=== PATIENT | female | born 1950 | race Asian ===

== ENCOUNTER 2018-03-07 10:27 | Day surgery (SDC) | payer OTHER ==
[~2018-03-07] VITALS: Ht 160 cm; Wt 62.2 kg
[~2018-03-07 10:27] MED LIST: AMLO-147 PO; LOSA25TA12 PO; METF500T24 PO; SITA50TA2 PO; [UNRECOGNIZED DRUG - OTHER]
[2018-03-07] MEDS ORDERED: SIMVASTATIN (11:37)
[2018-03-07] MEDS ORDERED: NITROGLYCERIN (11:38)
[2018-03-07 11:40] VITALS: Ht 160 cm; Wt 62.2 kg
[2018-03-07 12:36] VITALS: BP 147/67; PULSE 82; RESP 20
--- NOTE | 2018-03-07 13:23 | PREAC ---
Date/Time of Note Date/Time of Note DATE: 03/07/18 TIME: 13:19 Anesthesia Eval and Record Evaluation Time Pre-Procedure Interview DATE: 03/07/18 TIME: 13:19 Age 68 Sex female NPO: 8 hrs Preoperative diagnosis dysphagia Planned procedure EGD Past Medical History Past Medical History: Includes Cardio: HTN, Dyslipidemia Endo: Diabetes GI: GERD Surgery & Anesthesia Issues No known issue Meds Anticoagulation: No Beta Raphael within 24 hr: No Reason Beta Raphael not given: Pt. not on B-Raphael Reported Medications [Nitroglycerin] No Conflict Check 03/07/18 [Simvastatin] No Conflict Check 03/07/18 [Asirin] No Conflict Check 06/30/15 Losartan Potassium* (Losartan Potassium*) 25 Mg Tablet, 50 MG PO DAILY, TAB 06/30/15 Amlodipine Besylate* (Amlodipine Besylate*) 10 Mg Tablet, 10 MG PO DAILY, #30 TAB 06/30/15 Sitagliptin* (Januvia*) 50 Mg Tablet, 50 MG PO DAILY, #30 TAB 06/30/15 Metformin Hcl* (Metformin Hcl*) 500 Mg Tablet, 500 MG PO WITH BREAKFAST PRN for BID, #30 TAB 06/30/15 Meds reviewed: Yes Allergies Uncoded Allergies: PCN (Adverse Reaction, Severe, SOB , RASHES, 06/30/15) Allergies Reviewed: Yes Labs/Studies Labs Reviewed: Reviewed by anesthesiologist test: N/A Studies: ECG (SR) Pre-procedure Exam Last vitals Vital Signs Date Temp Pulse Resp B/P (MAP) Pulse Ox O2 O2 Flow FiO2 Time Delivery Rate 03/07/18 99.4 82 20 147/67 100 Room Air 12:36 (93) Airway: Adequate mouth opening, Adequate thyromental dist Mallampati: Mallampati II Teeth: Abnormal (dentures top and bottom) Lung: Normal Heart: Normal ASA Physical Status ASA physical status: 2 Emergency: None Pre-operative Attestations Prior to commencing anesthesia and surgery, the patient was re-evaluated, there was verification of: *The patient's identity *The results of appropriate recent lab work and preoperative vital signs *The above evaluation not changing prior to induction *Anesthetic plan, risk benefits, alternative and complications discussed with patient/family; questions answered; patient/family understands, accepts and wishes to proceed. ASHLEY SANCHEZ Mar 07, 2018 13:23
[2018-03-07] MEDS ORDERED: LABETALOL HCL 20MG INJ IV PRN (13:30)
[2018-03-07] MEDS ORDERED: hydrALAzine 20 MG INJ IV PRN (13:30)
[2018-03-07] MEDS ORDERED: METOCLOPRAMIDE 10 MG INJ IV PRN (13:30)
[2018-03-07] MEDS ORDERED: ONDANSETRON 4 MG INJ IV PRN (13:30)
[2018-03-07 13:50] VITALS: BP 125/58; PULSE 86; RESP 19
[2018-03-07 13:55] VITALS: BP 109/59; PULSE 81; RESP 18
[2018-03-07 14:16] VITALS: BP 125/66; PULSE 82; RESP 16
--- NOTE | 2018-03-07 15:20 | PAC ---
Date/Time of Note Date/Time of Note DATE: 03/07/18 TIME: 15:20 Post-Anesthesia Notes Post-Anesthesia Note Last documented vital signs Vital Signs Date Temp Pulse Resp B/P (MAP) Pulse Ox O2 O2 Flow FiO2 Time Delivery Rate 03/07/18 82 16 125/66 94 Room Air 14:16 (85) 03/07/18 99.1 13:50 Activity: WNL Respiratory function: WNL Cardiovascular function: WNL Mental status: Baseline Pain reasonably controlled: Yes Hydration appropriate: Yes Nausea/Vomiting absent: Yes ASHLEY SANCHEZ Mar 07, 2018 15:20
== END 2018-03-07 15:14 | disposition home or self-care (01) ==
LOC: GIL 10:27
PROVIDERS: ATTEND Internal Medicine Gastroenterology
DX: K21.0 Gastro-esophageal reflux disease with esophagitis (principal); K29.80 Duodenitis without bleeding; K29.70 Gastritis, unspecified, without bleeding; I10 Essential (primary) hypertension; E11.9 Type 2 diabetes mellitus without complications; E78.5 Hyperlipidemia, unspecified
CPT/HCPCS: 43239; 82962; 88305; 88312; 88313; Z7610